=== PATIENT | male | born 1965 | race Asian ===

== ENCOUNTER → 2017-01-24 | Emergency (ER) | payer BC, OTHER ==
[~2017-01-24] VITALS: Ht 165.1 cm; Wt 79.4 kg
[~2017-01-24] MED LIST: ALBUTEROL SULF8.5 GM INH; AMOXICILLIN500 MG ORAL; GUAIFENESIN1200 MG PO; LOSARTAN POTASS25 M1 PO; OCUFLOX5 ML OP; PROMETHAZINE-C118 M1 ORAL
[2017-01-24 12:20] VITALS: BP 154/106
--- NOTE | 2017-01-24 13:41 | Emergency Room Report ---
History of Present Illness General Chief Complaint: Upper Respiratory Illness Source: Patient Present Illness HPI 51-year-old male presents emergency department complaining of productive cough, progressive sore throat, fevers, chills x3 days with no relief from consistently taking NyQuil and DayQuil. Patient also reports new onset erythema and discharge from the left eye times one day he also notes that his is currently being treated for bacterial conjunctivitis. he denies neck pain or stiffness. Patient states he is up-to-date with his vaccinations denies history of asthma, COPD or smoking. Denies eye pain, photophobia or floaters. Denies CP, Palpitations, LOC, AMS, dizziness, Changes in Vision, Sensation, paresthesias, or a sudden severe headache. Allergies: Coded Allergies: No Known Allergies (Unverified , 01/24/17) Patient History Past Medical History: see triage record Past Surgical History: none Pertinent Family History: none Immunizations: UTD Reviewed Nursing Documentation: PMH: Agreed, PSxH: Agreed Nursing Documentation-PMH Past Medical History: No History, Except For Hx Hypertension: Yes Review of Systems All Other Systems: negative except mentioned in HPI Physical Exam Vital Signs Date Time Temp Pulse Resp B/P Pulse Ox O2 Delivery O2 Flow Rate FiO2 01/24/17 12:20 98.6 18 154/106 96 Room Air 01/24/17 12:20 103 Sp02 EP Interpretation: reviewed, normal General Appearance: no apparent distress, alert, GCS 15, non-toxic Head: normocephalic, atraumatic Eyes: bilateral eye PERRL, bilateral eye normal inspection, bilateral eye other - left eye erythema, d/c noted, no photophobia, no lid edema or periorbital swelling. ENT: hearing grossly normal, normal pharynx, no angioedema, normal voice, TMs + canals normal, nasal congestion - clear rhinorrhea, tonsillar swelling - bilateral tonsillar swelling., pharyngeal erythema, tonsillar exudate - one tonsillar exudate noted on the right posterior pharynx. Neck: full range of motion, supple/symm/no masses Respiratory: chest non-tender, lungs clear, normal breath sounds, no respiratory distress, speaking full sentences Cardiovascular #1: regular rate, rhythm, no edema, normal capillary refill Gastrointestinal: normal bowel sounds, non tender, soft, no guarding, no rebound Rectal: deferred Genitourinary: normal inspection, no CVA tenderness Musculoskeletal: back normal, gait/station normal, normal range of motion, non- tender, no calf tenderness Neurologic: alert, oriented x3, responsive, motor strength/tone normal, sensory intact, speech normal Psychiatric: judgement/insight normal, memory normal, mood/affect normal, no suicidal/homicidal ideation Skin: normal color, no rash, warm/dry, well hydrated Lymphatic: no adenopathy Medical Decision Making PA Attestation Dr. Felder is my supervising Physician whom patient management has been discussed with. Diagnostic Impression: Primary Impression: Conjunctivitis Qualified Codes: H10.32 - Unspecified acute conjunctivitis, left eye Additional Impressions: Pharyngitis Qualified Codes: J02.0 - Streptococcal pharyngitis Upper respiratory infection Qualified Codes: J06.9 - Acute upper respiratory infection, unspecified; B97.89 - Other viral agents as the cause of diseases classified elsewhere ER Course 51-year-old male presents emergency department complaining of productive cough, progressive sore throat, fevers, chills x3 days with no relief from consistently taking NyQuil and DayQuil. Patient also reports new onset erythema and discharge from the left eye times one day he also notes that his is currently being treated for bacterial conjunctivitis. he denies neck pain or stiffness. Patient states he is up-to-date with his vaccinations denies history of asthma, COPD or smoking. Denies eye pain, photophobia or floaters. Denies CP, Palpitations, LOC, AMS, dizziness, Changes in Vision, Sensation, paresthesias, or a sudden severe headache. Ddx considered but are not limited to URI, pneumonia, PE, strep pharyngitis, meningitis., conjunctivitis, corneal abrasion Vital signs: Pt. is afebrile, the remaining VS are WNL H&PE are most consistent with URI- suspicious for strep pharyngitis will treat prophylactically. PE also suggests bacterial conjunctivitis ORDERS: -CXR 1 view - No consolidation, effusion, pneumothorax or acute cardiopulmonary findings per soft read in ED by Dr. Felder. ED INTERVENTIONS: None required at this time. DISCHARGE: At this time pt. is stable for d/c to home. Will provide printed patient care instructions, and any necessary prescriptions. Care plan and follow up instructions have been discussed with the patient prior to discharge. Last Vital Signs Date Time Temp Pulse Resp B/P Pulse Ox O2 Delivery O2 Flow Rate FiO2 01/24/17 12:30 101 18 Room Air 01/24/17 12:20 98.6 154/106 96 Disposition: HOME, SELF-CARE Condition: Stable Scripts Guaifenesin (Guaifenesin) 1,200 Mg Tab.er.12h 1200 MG PO BID for 10 Days, #20 TAB Prov: Elizabeth Burnham 01/24/17 Albuterol Sulfate* (ALBUTEROL SULFATE MDI*) 8.5 Gm Hfa.aer.ad 2 PUFF INH Q6H, #1 INH 0 Refills Prov: Elizabeth Burnham 01/24/17 Ofloxacin (OCUFLOX) 5 Ml Drops 3 DROP OP BID for 5 Days, #5 ML Prov: Elizabeth Burnham 01/24/17 Amoxicillin* (AMOXIL*) 500 Mg Capsule 500 MG ORAL BID for 10 Days, #20 CAP Prov: Elizabeth Burnham 01/24/17 Codeine/Promethazine Hcl* (PROMETHAZINE-CODEINE SYRUP*) 118 Ml Syrup 5 ML ORAL Q4H Y for For Cough, #118 ML 0 Refills Prov: Elizabeth Burnham 01/24/17 Referrals: NON PHYSICIAN (PCP) Patient Instructions: Bacterial Conjunctivitis, Pharyngitis, [id number]-[id number], Upper Respiratory Infection, Adult Additional Instructions: Take medications as directed. Follow up with PCP in 3-5 days Return sooner to ED if new symptoms occur, or current symptoms become worse. Do not drink alcohol, drive, or operate heavy machinery while taking Cough Syrup as this may cause drowsiness. - Please note that this Emergency Department Report was dictated using Rapid [employer] administrator technology software, occasionally this can lead to erroneous entry secondary to interpretation by the dictation equipment. Elizabeth Burnham Jan 24, 2017 13:41
[2017-01-24 14:10] VITALS: BP 130/80
--- NOTE | 2017-01-24 15:04 | Diagnostic Imaging Report ---
Indication: PAIN Technique: One view of the chest Comparison: 01/03/2012 Findings: Lungs and pleural spaces are clear. The heart is normal in size. Aorta is tortuous. No significant change Impression: No acute process
--- NOTE | 2017-01-24 17:31 | Emergency Room Report ---
History of Present Illness General Chief Complaint: Upper Respiratory Illness Source: Patient Present Illness HPI * SEE OTHER NOTE* THIS IS A BLANK DUPLICATE Allergies: Coded Allergies: No Known Allergies (Unverified , 01/24/17) Nursing Documentation-[facility] Past Medical History: No History, Except For Hx Hypertension: Yes Physical Exam Vital Signs Date Time Temp Pulse Resp B/P Pulse Ox O2 Delivery O2 Flow Rate FiO2 01/24/17 12:20 98.6 18 154/106 96 Room Air 01/24/17 12:20 103 Medical Decision Making PA Attestation Dr. Felder is my supervising Physician whom patient management has been discussed with. ER Course * SEE OTHER NOTE* THIS IS A BLANK DUPLICATE Last Vital Signs Date Time Temp Pulse Resp B/P Pulse Ox O2 Delivery O2 Flow Rate FiO2 01/24/17 12:30 101 18 Room Air 01/24/17 12:20 98.6 154/106 96 Scripts Guaifenesin (Guaifenesin) 1,200 Mg Tab.er.12h 1200 MG PO BID for 10 Days, #20 TAB Prov: Elizabeth Burnham 01/24/17 Albuterol Sulfate* (ALBUTEROL SULFATE MDI*) 8.5 Gm Hfa.aer.ad 2 PUFF INH Q6H, #1 INH 0 Refills Prov: Elizabeth Burnham 01/24/17 Ofloxacin (OCUFLOX) 5 Ml Drops 3 DROP OP BID for 5 Days, #5 ML Prov: Elizabeth Burnham 01/24/17 Amoxicillin* (AMOXIL*) 500 Mg Capsule 500 MG ORAL BID for 10 Days, #20 CAP Prov: Elizabeth Burnham 01/24/17 Codeine/Promethazine Hcl* (PROMETHAZINE-CODEINE SYRUP*) 118 Ml Syrup 5 ML ORAL Q4H Y for For Cough, #118 ML 0 Refills Prov: Elizabeth Burnham 01/24/17 Elizabeth Burnham Jan 24, 2017 17:31
== END | disposition home or self-care (01) ==
LOC: EMR 12:57
DX: J02.0 Streptococcal pharyngitis (principal); H10.32 Unspecified acute conjunctivitis, left eye; J06.9 Acute upper respiratory infection, unspecified; B97.89 Other viral agents as the cause of diseases classified elsewhere; I10 Essential (primary) hypertension
CPT/HCPCS: 71010; 99284

== ENCOUNTER 2017-09-20 22:53 | Emergency (ER) | payer BC ==
[~2017-09-20] VITALS: Ht 165.1 cm; Wt 79.4 kg
[2017-09-20] MEDS: Ketorolac 30mg Inj IV ONE (23:40)
[2017-09-20 23:56] LABS: APPEARANCE,URINE SLIGHTLY CLOUDY; KETONES,URINE NEGATIVE (NEGATIVE); LEUKOCYTE ESTERASE ,URINE 1+ (NEGATIVE); NITRITE,URINE NEGATIVE (NEGATIVE); PH,URINE 6.5 (4.5-8.0); PROTEIN,URINE 2+ (NEGATIVE); UROBILINOGEN,URINE 1 MG/DL (0.0-1.0)
[2017-09-20 23:59] LABS: BASOPHILS % (AUTO) 0.9 % (0.0-2.0); EOSINOPHILS % (AUTO) 1.4 % (0.0-3.0); LYMPHOCYTES % (AUTO) 17.9 % (20.0-45.0); MEAN CORPUSCULAR HEMOGLOBIN 32.1 PG (27.0-31.0); MEAN CORPUSCULAR HGB CONC 34.4 G/DL (32.0-36.0); MEAN CORPUSCULAR VOLUME 93 FL (80-99); MEAN PLATELET VOLUME 8.7 FL (6.5-10.1); MONOCYTES % (AUTO) 8.3 % (1.0-10.0); NEUTROPHILS % (AUTO) 71.5 % (45.0-75.0); PLATELET COUNT 252 K/UL (150-450); RED BLOOD COUNT 5.06 M/UL (4.70-6.10); RED CELL DISTRIBUTION WIDTH 10.9 % (11.6-14.8); WHITE BLOOD COUNT 11.4 K/UL (4.8-10.8)
--- NOTE | 2017-09-21 00:06 | Emergency Room Report ---
History of Present Illness General Chief Complaint: Abdominal Pain Source: Patient Present Illness HPI Patient presents with complaints of left lower abdominal pain Pain started earlier today He felt that it was more in the flank region The pain seemed to subside however now presents further lower down 10 out of 10 sharp patient denies any dysuria frequency reports that he had a kidney stone before however did not feel like this as the previous kidney stone was in the right groin area Denies any trauma denies any focal weakness Allergies: Coded Allergies: No Known Allergies (Unverified , 01/24/17) Patient History Past Medical History: see triage record Pertinent Family History: none Reviewed Nursing Documentation: PMH: Agreed, PSxH: Agreed Nursing Documentation-PMH Hx Hypertension: Yes Review of Systems All Other Systems: negative except mentioned in HPI Physical Exam Vital Signs Date Time Temp Pulse Resp B/P (MAP) Pulse Ox O2 Delivery O2 Flow Rate FiO2 09/20/17 23:03 97.3 91 16 178/108 97 Room Air Sp02 EP Interpretation: reviewed, normal General Appearance: mild distress - in acute pain Head: normocephalic, atraumatic Eyes: bilateral eye PERRL, bilateral eye EOMI ENT: hearing grossly normal, normal pharynx, TMs + canals normal, uvula midline Neck: full range of motion, supple, no meningismus, no bony tend Respiratory: lungs clear, normal breath sounds, no rhonchi, no respiratory distress, no retraction, no accessory muscle use Cardiovascular #1: normal peripheral pulses, regular rate, rhythm, no edema, no gallop, no JVD, no murmur Gastrointestinal: normal bowel sounds, soft, no mass, no organomegaly, non- distended, no guarding, no hernia, no pulsatile mass, no rebound, tenderness - left lower quadrant Genitourinary: no CVA tenderness Musculoskeletal: normal inspection Neurologic: oriented x3, responsive, pharmacy delivery driver III-XII nml as tested, motor strength/ tone normal, sensory intact Psychiatric: mood/affect normal Skin: normal color, no rash, warm/dry, palpation normal Lymphatic: normal inspection, no adenopathy Medical Decision Making Diagnostic Impression: Primary Impression: Renal colic on left side ER Course With the history exam and presentation, multiple differentials considered, including but not limited to appendicitis, gastritis, cholecystitis, diverticulitis Patient had IV hydration and pain medication provided CT imaging does reveal left-sided mid ureter 3-4 mm kidney stone mild hydronephrosis clinically the patient feels significantly improved Given the clinical exam and the findings patient will have initial conservative outpatient trial Labs Test 09/20/17 23:35 White Blood Count 11.4 K/UL (4.8-10.8) Red Blood Count 5.06 M/UL (4.70-6.10) Hemoglobin 16.2 G/DL (14.2-18.0) Hematocrit 47.2 % (42.0-52.0) Mean Corpuscular Volume 93 FL (80-99) Mean Corpuscular Hemoglobin 32.1 PG (27.0-31.0) Mean Corpuscular Hemoglobin Concent 34.4 G/DL (32.0-36.0) Red Cell Distribution Width 10.9 % (11.6-14.8) Platelet Count 252 K/UL (150-450) Mean Platelet Volume 8.7 FL (6.5-10.1) Neutrophils (%) (Auto) 71.5 % (45.0-75.0) Lymphocytes (%) (Auto) 17.9 % (20.0-45.0) Monocytes (%) (Auto) 8.3 % (1.0-10.0) Eosinophils (%) (Auto) 1.4 % (0.0-3.0) Basophils (%) (Auto) 0.9 % (0.0-2.0) Urine Color Yellow Urine Appearance Slightly cloudy Urine pH 6.5 (4.5-8.0) Urine Specific [place] 1.015 (1.005-1.035) Urine Protein 2+ (NEGATIVE) Urine Glucose (UA) Negative (NEGATIVE) Urine Ketones Negative (NEGATIVE) Urine Occult Blood 5+ (NEGATIVE) Urine Nitrite Negative (NEGATIVE) Urine Bilirubin Negative (NEGATIVE) Urine Urobilinogen 1 MG/DL (0.0-1.0) Urine Leukocyte Esterase 1+ (NEGATIVE) Urine RBC Tntc /HPF (0 - 0) Urine WBC 0-2 /HPF (0 - 0) Urine Squamous Epithelial Cells None /LPF (NONE/OCC) Urine Bacteria Few /HPF (NONE) Sodium Level 139 MMOL/L (136-145) Potassium Level 3.7 MMOL/L (3.5-5.1) Chloride Level 103 MMOL/L (98-107) Carbon Dioxide Level 30 MMOL/L (21-32) Anion Gap 6 mmol/L (5-15) Blood Urea Nitrogen 13 mg/dL (7-18) Creatinine 1.6 MG/DL (0.55-1.30) Estimat Glomerular Filtration Rate 45.4 mL/min (>60) Glucose Level 113 MG/DL (74-106) Calcium Level 9.0 MG/DL (8.5-10.1) Total Bilirubin 0.4 MG/DL (0.2-1.0) Aspartate Amino Transf (AST/SGOT) 18 U/L (15-37) Alanine Aminotransferase (ALT/SGPT) 35 U/L (12-78) Alkaline Phosphatase 81 U/L (46-116) Total Protein 8.0 G/DL (6.4-8.2) Albumin 3.9 G/DL (3.4-5.0) Globulin 4.1 g/dL Albumin/Globulin Ratio 1.0 (1.0-2.7) Lipase 154 U/L (73-393) CT/MRI/US Diagnostic Results CT/MRI/US Diagnostic Results : Impression CT abdomen pelvis: See report for full detail evidence of left-sided mid ureter 3-4 mm kidney stone mild hydro- Last Vital Signs Date Time Temp Pulse Resp B/P (MAP) Pulse Ox O2 Delivery O2 Flow Rate FiO2 09/20/17 23:03 97.3 91 16 178/108 97 Room Air Status: improved Disposition: HOME, SELF-CARE Condition: Improved Scripts Hydrocodone Bit/Acetaminophen 5-325* (NORCO 5-325*) 1 Each Tablet 1 TAB ORAL Q6H Y for For Pain, #10 TAB 0 Refills Prov: VENUS MULTANI.O. 09/21/17 Ibuprofen* (MOTRIN*) 600 Mg Tablet 600 MG ORAL Q8H Y for For Pain, #20 TAB 0 Refills Prov: VENUS MULTANI.O. 09/21/17 Tamsulosin Hcl (TAMSULOSIN HCL*) 0.4 Mg Cap.er.24h 0.4 MG ORAL BEDTIME for 7 Days, CAP Prov: VENUS MULTANI.OChelly 09/21/17 Referrals: NON PHYSICIAN (PCP) Additional Instructions: Patient is provided with the discharge instructions notified to follow up with primary doctor in the next 2-3 days otherwise return to the er with any worsening symptoms. Please note that this report is being documented using DRAGON technology. This can lead to erroneous entry secondary to incorrect interpretation by the dictating instrument. VENUS MULTANI D.O. Sep 21, 2017 00:06
[2017-09-21 00:10] LABS: ANION GAP 6 mmol/L (5-15); BACTERIA,URINE FEW /HPF; CARBON DIOXIDE 30 MMOL/L (21-32); CHLORIDE 103 MMOL/L (98-107); CREATININE 1.6 MG/DL (0.55-1.30); GLOMERULAR FILTRATION RATE 45.4 mL/min (>60); POTASSIUM 3.7 MMOL/L (3.5-5.1); RBC,URINE TNTC /HPF (0 - 0); SODIUM 139 MMOL/L (136-145); WBC,URINE 0-2 /HPF (0 - 0)
[2017-09-21 00:14] LABS: ALANINE AMINOTRANSFERASE 35 U/L (12-78); ASPARTATE AMINO TRANSFERASE 18 U/L (15-37); LIPASE 154 U/L (73-393)
[2017-09-21 00:37] VITALS: BP 159/99
[2017-09-21] MEDS ORDERED: NORCO 5-325 TA1 EACH ORAL (01:37)
[2017-09-21] MEDS ORDERED: TAMSULOSIN HCL0.4 MG ORAL (01:37)
[2017-09-21] MEDS ORDERED: IBUPROFEN600 MG ORAL (01:37)
[2017-09-21] MEDS: Morphine Sulfate 4mg/ml Inj IVP ONE (01:41)
[2017-09-21 01:48] VITALS: BP_SYST 148; BP_SYST 159; BP_DIAS 102; BP_DIAS 99
--- NOTE | 2017-09-21 10:41 | Diagnostic Imaging Report ---
Indication: Reason For Exam: PAIN Technique: Spiral acquisitions obtained through the abdomen and pelvis. No oral or IV contrast utilized, per urinary stone protocol. Multiplanar reconstructions were generated. Total dose length product 704.71 mGycm. CTDIvol(s) 13.01 mGy. Dose reduction achieved using automated exposure control Comparison: January 15, 2010 Findings: There is a 4 mm calculus in the mid to distal left ureter. This results in mild left hydronephrosis and hydroureter. There is mild perinephric fat stranding on the left. No intrarenal calculi are seen on either side. No right ureteral calculi or hydroureter or hydronephrosis. Lack of IV contrast limits assessment of the renal parenchyma. No gross renal parenchymal mass or cyst demonstrated. The lack of IV contrast limits assessment of the other solid organs. The liver, gallbladder, bile ducts, pancreas, spleen, adrenals are unremarkable. No retroperitoneal or mesenteric mass or adenopathy. No pelvic mass or adenopathy. There is colonic diverticulosis. No evidence of diverticulitis. The appendix is normal. No small bowel distention. No free or loculated intraperitoneal air or fluid. There is a tiny fat-containing left inguinal hernia. The included lung bases demonstrates atelectatic changes or scarring. The bones are unremarkable Impression: Positive for 4 mm left mid ureteral calculus. Resultant mild hydronephrosis, hydroureter, and perinephric fat stranding Colonic diverticulosis. No evidence of diverticulitis This agrees with the preliminary interpretation provided overnight by [facility] teleradiology service. The CT scanner at [facility] is accredited by the [employer] and the scans are performed using protocols designed to limit radiation exposure to as low as reasonably achievable to attain images of sufficient resolution adequate for diagnostic evaluation.
== END 2017-09-21 01:50 | disposition home or self-care (01) ==
LOC: EMR 23:32
DX: N13.2 Hydronephrosis with renal and ureteral calculous obstruction (principal); K57.30 Diverticulosis of large intestine without perforation or abscess without bleeding
CPT/HCPCS: 36415; 74176; 80053; 81003; 83690; 85025; 96361; 96374; 96375; 99284; J1885; J2270; J2405

== ENCOUNTER 2019-03-11 03:57 | Emergency (ER) | payer BC, OTHER ==
[~2019-03-11] VITALS: Ht 165.1 cm; Wt 78.5 kg
[~2019-03-11 03:57] MED LIST changes: +IBUPROFEN600 MG ORAL; +NORCO 5-325 TA1 EACH ORAL; +TAMSULOSIN HCL0.4 MG ORAL
[2019-03-11 04:00] VITALS: BP 130/76
--- NOTE | 2019-03-11 04:00 | NUR ---
ER Nurse Note: Pt came from home c/o chest pain 10/10 pain on left chest. Pt stated pain woke him up around 0300. Pt stated pain is non radiating. Cap refill <3 secs in all extremities. EKG completed. IV established, blood sent and awaiting results. ERMD at pt side; will conitnue to [facility].
--- NOTE | 2019-03-11 04:11 | Emergency Room Report ---
History of Present Illness General Chief Complaint: Chest Pain Source: Patient, Family Member, Medical Record Present Illness HPI Patient is a 53-year-old male brought in by self after increased chest and epigastric discomfort. Patient states it woke him up from sleep. He reports having severe pain which did not radiate. Pain is described as crampy in nature. He denies any exertion at the time of onset. Pain onset was approximately half hour prior to arrival. He denies any prior history of cardio vascular disease. He reports having prior history of hypertension. He is followed by . Patient denies any prior episodes of pancreatitis. He denies any recent alcohol intake.Patient states that he is a smoker. Allergies: Coded Allergies: No Known Allergies (Unverified , 01/24/17) Patient History Past Medical History: see triage record Reviewed Nursing Documentation: PMH: Agreed; PSxH: Agreed Nursing Documentation-PMH Hx Hypertension: Yes Review of Systems All Other Systems: negative except mentioned in HPI Physical Exam Vital Signs Date Time Temp Pulse Resp B/P (MAP) Pulse Ox O2 Delivery O2 Flow Rate FiO2 03/11/19 04:04 98.4 86 16 124/62 (82) 100 Room Air Sp02 EP Interpretation: reviewed, normal General Appearance: normal inspection, no apparent distress, alert, GCS 15, mild distress Head: atraumatic ENT: normal ENT inspection, hearing grossly normal, normal voice Neck: normal inspection, full range of motion, supple, no bony tend Respiratory: normal inspection, lungs clear, normal breath sounds, no respiratory distress, no retraction, no wheezing Cardiovascular #1: regular rate, rhythm, no edema Gastrointestinal: normal bowel sounds, non tender, soft, no guarding, no hernia , tenderness - epigastric Genitourinary: no CVA tenderness Musculoskeletal: normal inspection, back normal, normal range of motion Neurologic: normal inspection, alert, responsive, speech normal Psychiatric: normal inspection, judgement/insight normal, mood/affect normal Skin: normal inspection, normal color, no rash Medical Decision Making Diagnostic Impression: Primary Impression: Chest pain Additional Impression: ACS (acute coronary syndrome) ER Course Patient presented for chest pain. Differential diagnosis include was not limited to inferior MT, peptic ulcer disease, bowel obstruction, colitis among others. Because of complexity of patient's case laboratory testing and imaging studies were ordered. EKG interpreted by me showed normal sinus rhythm without acute ST or T wave changes. Repeat EKG was unchanged. Patient's initial laboratory testing was drawn after patient had chest pain for very brief time and troponin was noted to be negative. Patient was noted to have some risk factors for acute ACS. Patient was advised that he should have inpatient work- up due to chest pain and unstable symptoms. Patient indicated understanding. He stated that he wanted to leave AGAINST MEDICAL ADVICE. Patient advised risk of worsening of condition heart attack and . He indicated understanding and still wishes to leave. Patient stated he was pain-free at the time of leaving the hospital. He was given prescription for acid blockers advised to return if he felt changed his mind. Labs Test 03/11/19 04:30 White Blood Count 9.2 K/UL (4.8-10.8) Red Blood Count 5.19 M/UL (4.70-6.10) Hemoglobin 16.1 G/DL (14.2-18.0) Hematocrit 47.1 % (42.0-52.0) Mean Corpuscular Volume 91 FL (80-99) Mean Corpuscular Hemoglobin 31.1 PG (27.0-31.0) Mean Corpuscular Hemoglobin Concent 34.3 G/DL (32.0-36.0) Red Cell Distribution Width 11.5 % (11.6-14.8) Platelet Count 280 K/UL (150-450) Mean Platelet Volume 7.8 FL (6.5-10.1) Neutrophils (%) (Auto) 62.2 % (45.0-75.0) Lymphocytes (%) (Auto) 27.6 % (20.0-45.0) Monocytes (%) (Auto) 7.9 % (1.0-10.0) Eosinophils (%) (Auto) 1.3 % (0.0-3.0) Basophils (%) (Auto) 1.0 % (0.0-2.0) Prothrombin Time 9.7 SEC (9.30-11.50) Prothromb Time International Ratio 0.9 (0.9-1.1) Activated Partial Thromboplast Time 26 SEC (23-33) Sodium Level 138 MMOL/L (136-145) Potassium Level 3.3 MMOL/L (3.5-5.1) Chloride Level 101 MMOL/L (98-107) Carbon Dioxide Level 28 MMOL/L (21-32) Anion Gap 9 mmol/L (5-15) Blood Urea Nitrogen 16 mg/dL (7-18) Creatinine 1.2 MG/DL (0.55-1.30) Estimat Glomerular Filtration Rate > 60 mL/min (>60) Glucose Level 120 MG/DL (74-106) Calcium Level 9.4 MG/DL (8.5-10.1) Total Bilirubin 0.5 MG/DL (0.2-1.0) Aspartate Amino Transf (AST/SGOT) 84 U/L (15-37) Alanine Aminotransferase (ALT/SGPT) 75 U/L (12-78) Alkaline Phosphatase 78 U/L (46-116) Total Creatine Kinase 57 U/L (26-308) Creatine Kinase MB 0.8 NG/ML (0.0-3.6) Creatine Kinase MB Relative Index 1.4 Troponin I 0.000 ng/mL (0.000-0.056) Pro-B-Type Natriuretic Peptide 6 pg/mL (0-125) Total Protein 8.0 G/DL (6.4-8.2) Albumin 4.0 G/DL (3.4-5.0) Globulin 4.0 g/dL Albumin/Globulin Ratio 1.0 (1.0-2.7) Lipase 258 U/L (73-393) EKG Diagnostic Results Rate: normal Rhythm: NSR ST Segments: no acute changes Last Vital Signs Date Time Temp Pulse Resp B/P (MAP) Pulse Ox O2 Delivery O2 Flow Rate FiO2 03/11/19 04:04 98.4 86 16 124/62 (82) 100 Room Air Status: improved Disposition: AGAINST MEDICAL ADVICE Condition: Unknown Scripts Omeprazole Magnesium (PRILOSEC OTC) 20 Mg Tablet. 20 MG ORAL DAILY, #30 TAB Prov: Richie Leger MD 03/11/19 Richie Leger MD Mar 11, 2019 04:11
[2019-03-11] MEDS ORDERED: Isovue-300 100ml vial INJ PRN (04:15)
[2019-03-11] MEDS ORDERED: Aspirin Baby 81mg ORAL ONE (04:15)
[2019-03-11 04:23] LABS: EOSINOPHILS % (AUTO) 1.3 % (0.0-3.0); HEMATOCRIT 47.1 % (42.0-52.0); HEMOGLOBIN 16.1 G/DL (14.2-18.0); LYMPHOCYTES % (AUTO) 27.6 % (20.0-45.0); MEAN CORPUSCULAR VOLUME 91 FL (80-99); MONOCYTES % (AUTO) 7.9 % (1.0-10.0); NEUTROPHILS % (AUTO) 62.2 % (45.0-75.0); PLATELET COUNT 280 K/UL (150-450); RED BLOOD COUNT 5.19 M/UL (4.70-6.10); RED CELL DISTRIBUTION WIDTH 11.5 % (11.6-14.8); WHITE BLOOD COUNT 9.2 K/UL (4.8-10.8)
[2019-03-11 04:36] LABS: ANION GAP 9 mmol/L (5-15); BLOOD UREA NITROGEN 16 mg/dL (7-18); CALCIUM 9.4 MG/DL (8.5-10.1); CARBON DIOXIDE 28 MMOL/L (21-32); CHLORIDE 101 MMOL/L (98-107); CREATININE 1.2 MG/DL (0.55-1.30); INR 0.9 (0.9-1.1); POTASSIUM 3.3 MMOL/L (3.5-5.1); SODIUM 138 MMOL/L (136-145)
[2019-03-11 04:49] LABS: ALANINE AMINOTRANSFERASE 75 U/L (12-78); ALKALINE PHOSPHATASE 78 U/L (46-116); ASPARTATE AMINO TRANSFERASE 84 U/L (15-37); BILIRUBIN,TOTAL 0.5 MG/DL (0.2-1.0); CKMB 0.8 NG/ML (0.0-3.6); CREATINE KINASE 57 U/L (26-308)
[2019-03-11 05:28] VITALS: BP 126/64
--- NOTE | 2019-03-11 05:29 | NUR ---
ER Nurse Note: Pt a&ox4,VSS, no signs of distress. Pt stated his pain was allivated after meds but pain 5/10 in epigastic area of chest. Awaiting CT and x-ray; called radiology twice. Pt ambultory, skin intact. All safety measures met; will continue to montior.
--- NOTE | 2019-03-11 07:15 | NUR ---
ER Nurse Note: Pt returned from CT and xray, awaiting results. Pt ambulatory, VSS, no signs of distress. Pt currently not complaining of pain. Report given to MARKOS Villaseñor for continuity of care.
[2019-03-11 07:20] VITALS: BP 135/91
--- NOTE | 2019-03-11 07:20 | NUR ---
ED Nurse Note: REPORT RECEIVED FROM MARKOS JACKSON. PT LAYING PEACEFULLY IN BED IN NAD. AOX4. VSS. PT DENIES CHEST PAIN AT THIS TIME.
[2019-03-11] MEDS ORDERED: PRILOSEC OTC20 MG ORAL (07:43)
[2019-03-11 07:55] VITALS: BP 132/86
--- NOTE | 2019-03-11 07:55 | NUR ---
ED Nurse Note: PT AOX4 AND LAYING PEACEFULLY IN BED IN NAD. DR SANFORD AT BEDSIDE EXPLAINING TO PT THE NEED TO BE ADMITTED. PT STATES HE DOES NOT WISH TO BE ADMITTED AND WOULD LIKE TO GO HOME INSTEAD. DR SANFORD EXPLAINING, IN DETAIL, THE RISKS AND CONSEQUENCES INVOLVED IN LEAVING THE HOSPITAL AT THIS TIME WELL THE BENEFITS OF CONTINUED TREATMENT AND HOSPITALIZATION. PT VERBALIZES UNDERSTANDING BUT STILL WISHES TO SIGN OUT AMA. AMA SIGN FORMED AND WITNESSED BY PRIMARY RN. PT WALKED OUT OF ER WITH STEADY GAIT AND ALL BELONGINGS.
--- NOTE | 2019-03-11 09:07 | Diagnostic Imaging Report ---
Clinical Indication: Abdominal pain for 3 days Technique: No oral contrast utilized, per emergency room physician request IV administration nonionic contrast. Venous phase spiral acquisition obtained through the abdomen and pelvis. Multiplanar reconstructions were generated. Total dose length product 806.36 mGycm. CTDIvol(s) 14.79 mGy. Dose reduction achieved using automated exposure control Comparison: 09/20/2017 noncontrast study Findings: The appendix is normal. No evidence of diverticulosis or diverticulitis. No small bowel distention. No free or loculated intraperitoneal gas or fluid is evident. The distal esophagus, stomach, duodenum are unremarkable. The liver, gallbladder, bile ducts, pancreas, spleen, adrenals are unremarkable. There are subcentimeter low-attenuation renal lesions bilaterally which are too small to characterize. Previously demonstrated left ureteral calculus is no longer evident. There is mild ectasia to the left ureter, but no renal or ureteral calculi, hydronephrosis, hydroureter. No pelvic mass or adenopathy. The bladder is distended. The prostate is mildly prominent. No retroperitoneal or mesenteric mass or adenopathy. The included lung bases demonstrate posterior dependent atelectatic changes and/or scarring. The bones demonstrate degenerative spondylosis changes. Impression: No acute abnormality Subcentimeter low-attenuation bilateral renal lesions, too small to characterize, most likely benign simple cysts. No further follow-up necessary Note that previously demonstrated left ureteral calculus is no longer evident Degenerative lumbar spondylosis changes incidentally noted This agrees with the preliminary interpretation provided overnight by [facility]. The CT scanner at [facility] is accredited by the [employer] and the scans are performed using protocols designed to limit radiation exposure to as low as reasonably achievable to attain images of sufficient resolution adequate for diagnostic evaluation.
--- NOTE | 2019-03-11 12:03 | Diagnostic Imaging Report ---
Indication: Shortness of breath Technique: One view of the chest Comparison: 01/24/2017 Findings: Lungs and pleural spaces are clear. Heart size is normal. No significant interim change Impression: No acute process
== END 2019-03-11 07:55 | disposition left against medical advice (07) ==
LOC: EMR 04:16 → CANBEDREQ 08:11
DX: R07.9 Chest pain, unspecified (principal); I24.9 Acute ischemic heart disease, unspecified; I10 Essential (primary) hypertension
CPT/HCPCS: 36415; 71045; 74177; 80053; 82550; 82553; 83690; 83880; 84484; 85025; 85610; 85730; 93005; 96374; 99284; Q9967; S0028